=== PATIENT | female | born 1955 | race Caucasian/White ===

== ENCOUNTER 2017-09-13 20:13 | Emergency (ER) | payer BC | END 2017-09-13 20:56 | disposition home or self-care (01) | LOC: ERS 20:13 | DX: S91.032D Puncture wound without foreign body, left ankle, subsequent encounter (principal); K21.9 Gastro-esophageal reflux disease without esophagitis; I10 Essential (primary) hypertension; Z79.899 Other long term (current) drug therapy; W55.01XD Bitten by cat, subsequent encounter | CPT/HCPCS: 99283 ==

== ENCOUNTER 2017-09-14 14:37 | Inpatient (IN) | payer BC ==
[2017-09-14 16:59] LABS: #Eosinphils 0.1 thou/uL (0.0-0.7); #Lymphocytes 2.3 thou/uL (1.20-3.40); #Monocytes 0.8 thou/uL (0.11-0.59); #Neutrophils 7.5 thou/uL (1.40-6.50); %Basophils 0.2 % (0.0-1.0); %Eosinophils 1.2 % (0.0-10.0); %Lymphocytes 21.3 % (21.0-51.0); %Monocytes 7.4 % (0.0-10.0); Hemoglobin 11.9 g/dL (12.0-16.0); Mean Corpuscular HGB CONC 34.8 g/dL (32.0-36.0); Mean Corpuscular Hemoglobin 31.2 pg (27.0-31.0); Mean Corpuscular Volume 89.6 fL (78.0-98.0); Mean Platelet Volume 6.5 fL (7.4-10.4); Platelet Count 296 thou/uL (130-400); RBC Distribution Width 11.6 % (11.5-14.5); Red Blood Cell (RBC) Count 3.83 mill/uL (4.20-5.40); White Blood Cell (WBC) Count 10.6 thou/uL (4.8-10.8)
[2017-09-14 17:18] LABS: ALT (SGPT) 15 U/L (8-55); AST (SGOT) 16 U/L (5-34); Albumin 3.7 g/dL (3.4-4.8); Alkaline Phosphatase 61 U/L (40-150); Anion Gap 9 mmol/L (10-20); BUN (Urea Nitrogen) 11 mg/dL (9.8-20.1); Bilirubin, Total 0.3 mg/dL (0.2-1.2); Calc. Creatinine Clearance 0 mL/min (70-130); Calcium 8.8 mg/dL (7.8-10.44); Carbon Dioxide 29 mmol/L (23-31); Chloride 106 mmol/L (98-107); Estimated GFR-MDRD 80; Globulin 2.8 g/dL (2.4-3.5); Glucose 105 mg/dL (80-115); Potassium 3.4 mmol/L (3.5-5.1); Protein, Total 6.5 g/dL (6.0-8.3); Sodium 141 mmol/L (136-145)
[2017-09-14] MEDS ORDERED: Ampicillin/Sulbactam 3 GM in Sodium Chloride 0.9% 100 ML IVPB SCH (17:45)
--- NOTE | 2017-09-14 19:02 | PDOC.FPRHP ---
- History of Present Illness Chief Complaint: cat bite History of Present Illness: Patient is a 62 yo F presenting to the ED with a CC of a cat bite on her left ankle that occurred two days ago. The cat is the family cat and fully immunized. The patient went to [facility] ER on Wednesday and received [id number] BID. The patient kept having worsening pain and redness so went to the ED Wednesday night where shew as given Augmentin 850mg BID. She returns today due to continued worsening pain, swelling and redness of the left ankle. Patient reports pain is controlled right now, localized to the left ankle. She has taken tramadol for pain. She is unable to put weight on the left leg due to pain. Denies chest pain, SOB - Allergies/Adverse Reactions Allergies Allergy/AdvReac Type Severity Reaction Status Date / Time codeine Allergy Verified 02/28/13 16:36 Phenothiazines Allergy Verified 02/28/13 16:36 Tricyclic Compounds AdvReac Mild Anxiety Verified 02/28/13 16:36 - Home Medications Medication Instructions Recorded Confirmed Type Acetaminophen [Acetaminophen Extra 1,000 mg PO Q4HR PRN 02/28/13 02/28/13 History Strength] Calcium Carbonate [Tums Smoothies 2 tablet PO Q2HR PRN 02/28/13 02/28/13 History Extra Strength] Estradiol [Estrace] 25 mg PO DAILY 02/28/13 02/28/13 History Fluticasone Propionate 2 spray EA NARE DAILY 02/28/13 02/28/13 History [Fluticasone Propionate Nasal [place]] Hydrochlorothiazide 12.5 mg PO DAILY 02/28/13 02/28/13 History Ibuprofen 600 mg PO Q6HR PRN 02/28/13 02/28/13 History Montelukast Sodium [Singulair] 10 mg PO HS 02/28/13 02/28/13 History - History PMHx: unspecified arrythmia, chronic bronchitis, GERD, HTN, JERILYN PSHx: cholecystectomy, hysterectomy, tonsillectomy, melanoma removed 10/2016, orthopedic surgery bilateral feet X3 for neuromas > 20 yrs ago FHx: mother - [place], father - [place], DM Social: Denies alcohol, smoking or drug use - Review of Systems General: reports: fever/chills (subjective fevers off and on since the bite on Tuesday 09/12). denies: weight/appetite/sleep changes, night sweats, fatigue Eyes: denies: eye pain, vision changes ENT: reports: nasal congestion (allergies). denies: rhinorrhea Respiratory: denies: cough, shortness of breath Cardiovascular: denies: chest pain, palpitation Gastrointestinal: denies: nausea, vomiting, diarrhea, constipation Skin: reports: rashes (left ankle), lesions (redness and pain to left ankle from bite) Musculoskeletal: reports: pain (to left ankle), tenderness, swelling. denies: stiffness, arthritis/arthralgias Neurological: denies: numbness, weakness Psychological: denies: anxiety, depression - Vital signs BP: [151/67] HR: [79] RR: [16] Tmax: [98.3] Pox: [95]% on [RA] Wt: [91kg] - Physical Exam Constitutional: NAD, awake, alert and oriented, well developed HEENT: normocephalic and atraumatic, grossly normal vision, MMM Chest: no-tender to palpation, no lesions Heart: RRR, normal S1/S2, no murmurs/rubs/gallops, pulses present Lungs: CTAB, no respiratory distress, no rales/rhonchi, no wheezing Abdomen: soft, non-tender, bowel sounds present Musculoskeletal: ROM grossly normal -Musculoskeletal: strong pedal pulses bilaterally Neurological: no focal deficit, normal sensation, DTRs 2+ -Neurological: Normal sensation in bilateral extremities; strength decreased in left leg due to pain with movement Skin: capillary refill <2 seconds, other -Skin: 15X16 cm area of erythema to distal left ankle; no purulence or drainage; warm to touch; tender to palpation Psychiatric: normal mood and affect FMR H&P: Results - Labs Result Diagrams: 09/14/17 16:47 09/14/17 16:47 Lab results: WBC 10.6 thou/uL (4.8-10.8) 09/14/17 16:47 Hgb 11.9 g/dL (12.0-16.0) L 09/14/17 16:47 Hct 34.3 % (36.0-47.0) L 09/14/17 16:47 MCV 89.6 fL (78.0-98.0) 09/14/17 16:47 Plt Count 296 thou/uL (130-400) 09/14/17 16:47 Neutrophils % 70.0 % (42.0-75.0) 09/14/17 16:47 ESR Westergren 7 mm/hr (Less than 30) 09/14/17 16:47 Sodium 141 mmol/L (136-145) 09/14/17 16:47 Potassium 3.4 mmol/L (3.5-5.1) L 09/14/17 16:47 Chloride 106 mmol/L (98-107) 09/14/17 16:47 Carbon Dioxide 29 mmol/L (23-31) 09/14/17 16:47 BUN 11 mg/dL (9.8-20.1) 09/14/17 16:47 Creatinine 0.74 mg/dL (0.6-1.1) 09/14/17 16:47 Glucose 105 mg/dL (80-115) 09/14/17 16:47 Lactic Acid 0.9 mmol/L (0.5-2.2) 09/14/17 16:47 Calcium 8.8 mg/dL (7.8-10.44) 09/14/17 16:47 Total Bilirubin 0.3 mg/dL (0.2-1.2) 09/14/17 16:47 AST 16 U/L (5-34) 09/14/17 16:47 ALT 15 U/L (8-55) 09/14/17 16:47 Alkaline Phosphatase 61 U/L (40-150) 09/14/17 16:47 C-Reactive Protein 2.84 mg/dL (= or < 0.5) H 09/14/17 16:47 Serum Total Protein 6.5 g/dL (6.0-8.3) 09/14/17 16:47 Albumin 3.7 g/dL (3.4-4.8) 09/14/17 16:47 FMR H&P: A/P - Problem List (1) Cat bite of ankle Current Visit: Yes Status: Acute Code(s): S91.059A - OPEN BITE, UNSPECIFIED ANKLE, INITIAL ENCOUNTER; W55.01XA - BITTEN BY CAT, INITIAL ENCOUNTER Assessment and Plan: - begin IV abx of ampicillin/sulbactam 100 mls @ 200mls/hr - IV clinda to cover for staph infxn - monitor vitals signs - start therapeutic lovenox (2) Hypokalemia Current Visit: Yes Status: Acute Code(s): E87.6 - HYPOKALEMIA Assessment and Plan: - replace K 40mEq - recheck level tomorrow (3) Chronic hypertension not affecting current episode of care Current Visit: Yes Status: Acute Code(s): I10 - ESSENTIAL (PRIMARY) HYPERTENSION Assessment and Plan: - continue home meds of HCTZ and valsartan - monitor BPs (4) JERILYN (obstructive sleep apnea) Current Visit: Yes Status: Acute Code(s): G47.33 - OBSTRUCTIVE SLEEP APNEA ( ADULT) (PEDIATRIC) Assessment and Plan: - patient states she not use/desire CPAP at home - Plan Disposition/LOS: disposition: inpatient status, placed on medical floor, requiring iv abx length of stay: likely > 2 days Code Status: FULL FMR H&P: Upper Level - Pertinent history 62 yo WF PMH HTN, JERILYN, and "irregular heart beat." Presents following house cat bite that occurred Wednesday evening. Went to urgent care on Wednesday and was started on keflex. Went to ER Wednesday night because pain and swelling worsening. Was started on Augmentin and tramadol. Pain worsened and she returned to ER. Admitted for failed outpatient therapy. Cat was UTD on vaccinations. - Pertinent findings Vitals: BP mildly elevated Gen: NAD ENT: MMM CV: RRR, no murmur Lung: CTA-B, normal effort. Extremities: Swelling and erythema overlying left medial malleolus. two puncture wounds with scab near center of lesion. Erythema extends superiorly of the andrae made by MIGUEL martin. No streaking noted along proximal leg. Labs unremarkable - Plan Date/Time: 09/14/171857 I, Andrae Ogden MD, have evaluated this patient and agree with findings/plan as outlined by academic intern resident. Pertinent changes/additions are listed here. 1. Cellulitis 2/2 Cat bite: House cat that is UTD so low concern for rabies. Continue Unasyn. Start clinda to cover possible Straph since failed outpatient augmentin therapy. Tramadol for pain management. Will monitor progression of swelling. 2. HTN: home meds 3. JERILYN: patient states she does not use CPAP. Will encourage outpatient sleep study 4. CODE: Full 5. PPx: Fall, Lovenox since on estrogen.
[2017-09-14] MEDS ORDERED: Acetaminophen 325 MG TAB PO PRN (20:17)
[2017-09-14] MEDS ORDERED: Ondansetron ODT 4 MG TAB PO PRN (20:17)
[2017-09-14] MEDS ORDERED: Bisacodyl 10 MG SUPP PR PRN (20:17)
[2017-09-14] MEDS ORDERED: Acetaminophen 650 MG Suppository PR PRN (20:17)
[2017-09-14] MEDS ORDERED: Bisacodyl 5 MG TAB PO PRN (20:17)
[2017-09-14] MEDS ORDERED: Ondansetron HCl/PF 4 MG/2 ML Vial IVP PRN (20:17)
[2017-09-14] MEDS ORDERED: traMADol HCl 50 MG TAB PO PRN (20:22)
[2017-09-14] MEDS ORDERED: Enoxaparin Sodium 40 MG/0.4 ML SYRINGE SC SCH (20:30)
[2017-09-14] MEDS ORDERED: Calcium Carbonate 500 MG ChewTAB PO PRN (21:00)
[2017-09-14] MEDS: Montelukast Sodium 10 mg Tablet PO SCH (21:34)
[2017-09-14 21:45] VITALS: BMI 34.3
[2017-09-14] MEDS: Clindamycin/D5W 300 MG/50 ML BAG IVPB SCH (23:09)
[2017-09-15] MEDS: Ampicillin/Sulbactam 3 GM in Sodium Chloride 0.9% 100 ML IVPB SCH ×3 (02:29→17:43)
--- NOTE | 2017-09-15 05:11 | PDOC.FM ---
- Subjective Subjective: Did well overnight. Erythema margins around L ankle wound has decreased dramatically. Last night was 1 cm superior to marked margins, this morning within the marked margins. Pt reports improvement but also severe tenderness to the marked area. - Objective Vital Signs & Weight: Vital Signs (12 hours) Temp Pulse Resp BP Pulse Ox 09/15/17 00:46 97.9 F 84 18 117/70 94 L 09/14/17 21:30 98.2 F 84 18 160/75 H 95 09/14/17 20:00 98.2 F 84 18 95 09/14/17 19:14 97.8 F 80 18 154/80 H 98 Weight Weight 90.718 kg Result Diagrams: 09/14/17 16:47 09/14/17 16:47 <Connie Brown - Last Filed: 09/15/17 08:34> - Objective Vital Signs & Weight: Vital Signs (12 hours) Temp Pulse Resp BP Pulse Ox 09/15/17 16:55 98.5 F 79 18 158/70 H 96 09/15/17 12:44 98.0 F 92 20 163/76 H 92 L Weight Weight 90.718 kg I&O: 09/14/17 09/15/17 09/16/17 06:59 06:59 06:59 Intake Total 500 660 Balance 500 660 Result Diagrams: 09/14/17 16:47 09/15/17 12:15 <Magda Tinajero - Last Filed: 09/15/17 21:23> Phys Exam - Physical Examination HEENT: PERRLA, moist MMs, sclera anicteric Neck: no nodes Respiratory: clear to auscultation bilateral Cardiovascular: RRR, no significant murmur Gastrointestinal: soft, non-tender Musculoskeletal: pulses present Psychiatric: normal affect Skin: cap refill <2 seconds Deviation from normal: Area of erythema within the marked margins. Improving. <Connie Brown - Last Filed: 09/15/17 08:34> Dx/Plan (1) Cat bite of ankle Code(s): S91.059A - OPEN BITE, UNSPECIFIED ANKLE, INITIAL ENCOUNTER; W55.01XA - BITTEN BY CAT, INITIAL ENCOUNTER Status: Acute (2) Chronic hypertension not affecting current episode of care Code(s): I10 - ESSENTIAL (PRIMARY) HYPERTENSION Status: Chronic (3) Hypokalemia Code(s): E87.6 - HYPOKALEMIA Status: Acute - Plan Plan: - Plan 1. Cellulitis 2/2 Cat bite: House cat that is UTD so low concern for rabies. Tramadol for pain management. Will monitor progression of swelling. -Unasyn, clinda to cover staph since failed outpt augmentin therapy. Margin Erythema decreased since yesterday, improving. -blood cx pending -LA 1.9, stable 2. HTN: home meds 3. JERILYN: patient states she does not use CPAP. Will encourage outpatient sleep study 4. Hypokalemia -replaced with 40 mEq 0800 09/15 -recheck BMP @ 1200 on 09/15. Will add a mag level if no improvement. CODE: Full PPx: Fall, Lovenox since on estrogen. <Connie Brown - Last Filed: 09/15/17 08:34> Attending Addendum - Attending Addendum Date/Time: 09/15/170 I personally evaluated the patient and discussed the management with Dr. Bello Brown I agree with the History, Examination, Assessment and Plan documented above with any addition or exceptions noted below- Patient states that pain and swelling have improved. Afebrile VSS. A/P: 1) Left LE cellulitis secondary to cat bite- erythema and swelling improved. Continue IV abx and most likely transition to po tomorrow. <Magda Tinajero - Last Filed: 09/15/17 21:23>
[2017-09-15] MEDS: Clindamycin/D5W 300 MG/50 ML BAG IVPB SCH ×3 (06:06→19:25)
[2017-09-15] MEDS: Loratadine 10 MG TAB PO SCH (08:26)
[2017-09-15] MEDS: Enoxaparin Sodium 40 MG/0.4 ML SYRINGE SC SCH (08:26)
[2017-09-15] MEDS: Potassium Chloride 20 MEQ TAB PO SCH (08:26)
[2017-09-15] MEDS: Fluticasone Propionate Nasal Spray 16 gm Bottle NASAL SCH (10:11)
[2017-09-15 13:08] LABS: Anion Gap 12 mmol/L (10-20); BUN (Urea Nitrogen) 9 mg/dL (9.8-20.1); Calc. Creatinine Clearance 132 mL/min (70-130); Calcium 8.9 mg/dL (7.8-10.44); Carbon Dioxide 25 mmol/L (23-31); Chloride 108 mmol/L (98-107); Estimated GFR-MDRD Greater than 90; Glucose 103 mg/dL (80-115); Potassium 3.9 mmol/L (3.5-5.1); Sodium 141 mmol/L (136-145)
[2017-09-15] MEDS ORDERED: Saccharomyces boulardii 250 MG CAP PO SCH (13:30)
[2017-09-15] MEDS: Montelukast Sodium 10 mg Tablet PO SCH (20:34)
[2017-09-15] MEDS ORDERED: Valsartan 80 MG TAB PO SCH (21:00)
[2017-09-15] MEDS ORDERED: Hydrochlorothiazide 25 MG TAB PO SCH (21:00)
[2017-09-16] MEDS: Clindamycin/D5W 300 MG/50 ML BAG IVPB SCH ×3 (01:02→12:51)
[2017-09-16] MEDS: Ampicillin/Sulbactam 3 GM in Sodium Chloride 0.9% 100 ML IVPB SCH ×2 (02:12→10:18)
--- NOTE | 2017-09-16 05:59 | PDOC.FM ---
- Subjective Subjective: Pt 63 yo F here for cellulitis of the left leg. She feels well and wishes to go home. Erythema has significantly improved since yesterday. She feels well. Does have swollen left arm from where antibiotics were given through bad IV. Stable overnight - Objective Vital Signs & Weight: Vital Signs (12 hours) Temp Pulse Resp BP Pulse Ox 09/15/17 20:00 98.1 F 85 18 158/79 H 96 Weight Weight 90.718 kg I&O: 09/14/17 09/15/17 09/16/17 06:59 06:59 06:59 Intake Total 500 660 Balance 500 660 Result Diagrams: 09/14/17 16:47 09/15/17 12:15 <Connie Brown - Last Filed: 09/16/17 08:25> - Objective Vital Signs & Weight: Weight Weight 90.718 kg I&O: 09/15/17 09/16/17 09/17/17 06:59 06:59 06:59 Intake Total 500 660 480 Balance 500 660 480 Result Diagrams: 09/14/17 16:47 09/15/17 12:15 <Magda Tinajero - Last Filed: 09/16/17 22:16> Phys Exam - Physical Examination Constitutional: NAD Respiratory: clear to auscultation bilateral Cardiovascular: RRR, no significant murmur Gastrointestinal: soft, non-tender Musculoskeletal: pulses present Neurological: moves all 4 limbs Psychiatric: normal affect, A&O x 3 Deviation from normal: diameter of erythematous margin decreased since yesterday. Still some edema -: around the wound. Less tender to palpation today. <Connie Brown - Last Filed: 09/16/17 08:25> Dx/Plan (1) Cat bite of ankle Code(s): S91.059A - OPEN BITE, UNSPECIFIED ANKLE, INITIAL ENCOUNTER; W55.01XA - BITTEN BY CAT, INITIAL ENCOUNTER Status: Acute (2) Chronic hypertension not affecting current episode of care Code(s): I10 - ESSENTIAL (PRIMARY) HYPERTENSION Status: Chronic (3) Hypokalemia Code(s): E87.6 - HYPOKALEMIA Status: Acute - Plan Plan: 1. Cellulitis 2/2 Cat bite: Patient reports last Tdap to be 2-3 years ago. House cat that is UTD so low concern for rabies. Tramadol for pain management. Will monitor progression of swelling. -Unasyn, clinda to cover staph since failed outpt augmentin therapy. Margin Erythema decreased since yesterday, improving. -blood cx pending, NGTD -Plan to switch to oral antibiotics today, possibly discharge today. 2. HTN: home meds 3. JERILYN: patient states she does not use CPAP. Will encourage outpatient sleep study 4. Hypokalemia -replaced with 40 mEq 0800 09/15. Potassium level improved. CODE: Full PPx: Fall, Lovenox since on estrogen. <Connie Brown - Last Filed: 09/16/17 08:25> Attending Addendum - Attending Addendum Date/Time: 09/16/172213 I personally evaluated the patient and discussed the management with Dr. Bello Brown I agree with the History, Examination, Assessment and Plan documented above with any addition or exceptions noted below- Patient states that pain is much better. Denies any other complaints. Afebrile VSS. A/P: Cellulitis secondary cat bite- much improved. Plan to d/c home today on po augmentin. <Magda Tinajero - Last Filed: 09/16/17 22:16>
[2017-09-16] MEDS: Potassium Chloride 20 MEQ TAB PO SCH (08:18)
[2017-09-16] MEDS: Loratadine 10 MG TAB PO SCH (08:19)
[2017-09-16] MEDS: Enoxaparin Sodium 40 MG/0.4 ML SYRINGE SC SCH (08:19)
[2017-09-16] MEDS: Fluticasone Propionate Nasal Spray 16 gm Bottle NASAL SCH (08:22)
[2017-09-16] MEDS ORDERED: Loratadine 10 MG TAB PO SCH (09:00)
[2017-09-16] MEDS ORDERED: Saccharomyces boulardii 250 MG CAP PO SCH (09:00)
[2017-09-16] MEDS ORDERED: Hydrochlorothiazide 25 MG TAB PO SCH (09:00)
[2017-09-16 09:06] VITALS: BP 141/78; TEMP 98.7
--- NOTE | 2017-09-17 00:52 | DIS-2 ---
DATE OF ADMISSION: 09/14/2017 DATE OF DISCHARGE: 09/16/2017 RESIDENT: Connie Brown MD ADMITTING ATTENDING: Garland Perera M.D. DISCHARGE ATTENDING: Magda Tinajero M.D. CONSULTATIONS: None. PROCEDURES: None. PRIMARY DIAGNOSIS: Cellulitis of the left ankle secondary to cat bite. SECONDARY DIAGNOSES: 1. Hypertension. 2. Likely obstructive sleep apnea. 3. Hypokalemia. MEDICATIONS: 1. Valsartan 80 mg p.o. at bedtime. 2. Montelukast sodium 10 mg p.o. at bedtime. 3. Ibuprofen 600 mg p.o. q.6 hours p.r.n. 4. Hydrochlorothiazide 12.5 mg p.o. daily. 5. Fluticasone 2 sprays each naris daily. 6. Fexofenadine Hcl 180 mg p.o. daily. 7. Estrace 2 mg p.o. daily. 8. Nexium 40 mg p.o. daily. 9. Calcium carbonate 2 tablets p.o. q.2 hours p.r.n. 10. Acetaminophen 1000 mg p.o. q.4 hours p.r.n. 11. Fluconazole 150 mg 1 p.r.n. 12. Augmentin 875/125 one each p.o. 3 times a day for 7 days. DISCONTINUED MEDICATIONS: Augmentin and Keflex. HISTORY OF PRESENT ILLNESS AND HOSPITAL COURSE: Patient is a 62-year-old female , who presented to the ED with a chief complaint of a cat bite on her left ankle , received two days prior. The cat was her pet, fully immunized. The patient is up-to-date on her Tdap, received 2-3 yrs ago. She went to [facility] ER on Wednesday and received Keflex 500 mg b.i.d. She had worsening pain and redness, so she went to the ED Wednesday night where she was given Augmentin 850 mg b.i.d. Then, she returned Wednesday evening due to continued worsening pain, swelling, and redness of the left ankle. She was started on Unasyn and clindamycin. She was also given tramadol for pain. She was given 3 days of IV antibiotics and her erythema and pain significantly decreased. She was discharged home on Augmentin 875 t.i.d. x7 days for a total of 10 days of antibiotics. She was also given fluconazole 1 pill as needed for yeast infection. She is encouraged to take probiotics. Her labs were all normal. Her blood culture showed no growth at 48 hours that was both from a venous blood from her right arm as well for the venous blood taken from her left arm. She left in stable condition. DISCHARGE INSTRUCTIONS: 1. Location: Home. 2. Diet: Normal regular diet. 3. Activity: As tolerated. 4. Follow up within 7-10 days with PCP. LEO
== END 2017-09-16 16:58 | disposition home or self-care (01) | DRG 603 ==
LOC: ERS 14:37 → T4-B 17:32
PROVIDERS: ADMIT Family Medicine; ATTEND Family Medicine
DX: L03.116 Cellulitis of left lower limb (principal); S91.052A Open bite, left ankle, initial encounter; W55.01XA Bitten by cat, initial encounter; Y93.9 Activity, unspecified; Y92.9 Unspecified place or not applicable; Y99.9 Unspecified external cause status; I10 Essential (primary) hypertension; G47.33 Obstructive sleep apnea (adult) (pediatric); E87.6 Hypokalemia; B37.9 Candidiasis, unspecified; J42 Unspecified chronic bronchitis; K21.9 Gastro-esophageal reflux disease without esophagitis; Z83.3 Family history of diabetes mellitus; Z82.49 Family history of ischemic heart disease and other diseases of the circulatory system
CPT/HCPCS: 36415; 80048; 80053; 83605; 85025; 85652; 86140; 87040; 93005; 93010; 96365; A4216; J0295; J1650; J3490; J7050

== ENCOUNTER 2017-10-19 14:50 | Emergency (ER) | payer BC ==
--- NOTE | 2017-10-19 17:25 | ULT ---
VENOUS DOPPLER ULTRASOUND OF THE RIGHT LOWER EXTREMITY: 10/19/17 HISTORY: Right leg pain and edema. TECHNIQUE: Aguilar scale ultrasound with color flow and spectral doppler imaging of the deep venous system of the r ight lower extremity is performed. FINDINGS: There is good flow, compression and augmentation noted in the common femoral, femoral, deep femoral, popliteal, posterior tibial and greater saphenous veins in the right lower extremity. IMPRESSION: No evidence of DVT in the right lower extremity. POS: [facility]
[2017-10-19 18:20] LABS: #Basophils 0.1 thou/uL (0.0-0.2); #Eosinphils 0.1 thou/uL (0.0-0.7); #Lymphocytes 2.8 thou/uL (1.20-3.40); #Monocytes 0.8 thou/uL (0.11-0.59); #Neutrophils 8.2 thou/uL (1.40-6.50); %Basophils 0.6 % (0.0-1.0); %Lymphocytes 23.2 % (21.0-51.0); %Monocytes 6.6 % (0.0-10.0); %Neutrophils 68.6 % (42.0-75.0); Hemoglobin 12.7 g/dL (12.0-16.0); Mean Corpuscular HGB CONC 33.6 g/dL (32.0-36.0); Mean Corpuscular Hemoglobin 30.4 pg (27.0-31.0); Mean Corpuscular Volume 90.5 fL (78.0-98.0); Mean Platelet Volume 6.6 fL (7.4-10.4); Platelet Count 309 thou/uL (130-400); RBC Distribution Width 11.7 % (11.5-14.5); Red Blood Cell (RBC) Count 4.18 mill/uL (4.20-5.40)
[2017-10-19 18:40] LABS: ALT (SGPT) 15 U/L (8-55); AST (SGOT) 15 U/L (5-34); Albumin 3.8 g/dL (3.4-4.8); Alkaline Phosphatase 67 U/L (40-150); Anion Gap 12 mmol/L (10-20); BUN (Urea Nitrogen) 7 mg/dL (9.8-20.1); Bilirubin, Total 0.3 mg/dL (0.2-1.2); CK (CPK) 95 U/L (29-168); Calc. Creatinine Clearance 0 mL/min (70-130); Carbon Dioxide 25 mmol/L (23-31); Chloride 104 mmol/L (98-107); Estimated GFR-MDRD Greater than 90; Glucose 90 mg/dL (80-115); Lipase 15 U/L (8-78); Potassium 3.6 mmol/L (3.5-5.1); Protein, Total 6.8 g/dL (6.0-8.3); Sodium 137 mmol/L (136-145)
[2017-10-19 18:43] LABS: Troponin I Less than 0.010 ng/mL (< 0.028)
--- NOTE | 2017-10-19 20:34 | RAD ---
CHEST ONE VIEW: 10/19/17 HISTORY: Dyspnea. COMPARISON: Chest radiograph 07/01/16. FINDINGS: The lungs are clear. No pneumothorax or effusion. The cardiac silhouette and mediastinal contours are within normal limits. IMPRESSION: No acute intrathoracic abnormality. POS: [facility]
--- NOTE | 2017-10-23 10:53 | EKG ---
Test Reason : Blood Pressure : / mmHG Vent. Rate : 078 BPM Atrial Rate : 078 BPM P-R Int : 158 ms QRS Dur : 084 ms QT Int : 394 ms P-R-T Axes : 048 031 065 degrees QTc Int : 449 ms Normal sinus rhythm Normal ECG Confirmed by SANDY LINARES, FLORA ([id number]), video tape editor SNOW GUNTER ([id number]) on 10/23/2017 10:52:54 AM Referred By: Confirmed By:FLORA DELGADO MD
== END 2017-10-19 19:14 | disposition home or self-care (01) ==
LOC: ERS 14:50
DX: M79.89 Other specified soft tissue disorders (principal); I10 Essential (primary) hypertension; J42 Unspecified chronic bronchitis; I49.9 Cardiac arrhythmia, unspecified; Z79.899 Other long term (current) drug therapy
CPT/HCPCS: 36415; 71045; 80053; 82550; 82553; 83690; 83880; 84484; 85025; 93005

== ENCOUNTER 2018-02-02 15:04 | Outpatient (CLI) | payer BC | END 2018-02-02 15:05 | disposition home or self-care (01) | LOC: BICMAMMO 15:04 | PROVIDERS: ATTEND Internal Medicine | DX: Z12.31 Encounter for screening mammogram for malignant neoplasm of breast (principal); R92.1 Mammographic calcification found on diagnostic imaging of breast | CPT/HCPCS: 77063; 77067 ==

== ENCOUNTER 2018-06-07 11:17 | Day surgery (SDC) | payer BC ==
[2018-06-06 11:23] VITALS: BMI 34.7
--- NOTE | 2018-06-07 12:50 | RAD ---
LEFT HIP TWO VIEWS: Indication: Left hip pain. Comparison: None. FINDINGS: There is mild degenerative arthrosis of the left hip. No acute fracture or subluxation is evident. IMPRESSION: No acute osseous abnormality. POS: [facility]
[2018-06-07] MEDS ORDERED: Ondansetron PF 4 MG/2 ML Vial ONE (12:56)
[2018-06-07] MEDS ORDERED: PROPOFOL 200 MG/20 ML VIAL ONE (12:56)
[2018-06-07] MEDS ORDERED: Lidocaine 1% PF 5 ML VIAL ONE (12:56)
--- NOTE | 2018-06-07 13:59 | RAD ---
CERVICAL SPINE 7 VIEWS: Date: 06/07/18 INDICATION: Neck pain. FINDINGS: There is advanced facet osteoarthrosis at C3-4, C4-5, and C5-6. There is slight anterior translation of C4 on C5 and C5 on C6 with neutral positioning. This reduces with extension and is accentuated wit h flexion. There is multilevel mild disc degenerative disease most pronounced at C5-6 and C6-7. Preve rtebral soft tissues are normal appearing. Very subtle anterior translation of C3 on C4 with flexion and C2 on C3 with flexion. Prevertebral soft tissues are normal appearing. Lung apices are clear. IMPRESSION: 1. Multilevel spondylosis of the cervical spine. 2. Mild anterior translation of C4 on C5 and C5 on C6, with neutral positioning that is reduced with extension and accentuated with flexion. There is also mild anterior translation of C2 on C3 and C3 o n C4 that is accentuated with flexion, but is reduced on the neutral and extension positioning films. POS: [facility]
--- NOTE | 2018-06-07 15:54 | MRI ---
CERVICAL SPINE MRI WITHOUT CONTRAST: 06/07/18 HISTORY: Cervical disc herniation. Multiple falls. Left sided neck and arm pain. COMPARISON: None. TECHNIQUE: Cervical spine MRI is performed without intravenous gadolinium administration. Multisequential, multi planar imaging is performed. FINDINGS: Appropriate T1 marrow signal intensity of the cervical vertebra. Cervical spine vertebral body height is maintained. There is no fracture. No significant STIR hyperintensity to suggest vertebral body ed mal or ligamentous injury. The visualized brain parenchyma, cervicomedullary junction, cervical cord and the upper thoracic cord have a normal size and signal intensity. C2-C3: No significant central canal stenosis or foraminal narrowing. C3-C4: Broad based disc osteophyte complex abuts the thecal sac and effaces the ventral thecal sac. T here is mild mass effect upon the cervical cord. At least mild central canal stenosis. Severe right a nd moderate left foraminal narrowing due to hypertrophic changes of the uncovertebral joint and facet on the right and hypertrophic changes on the left. C4-C5: No significant central canal stenosis. Right neural foramen is patent. Mild left foraminal antoinette rowing due to facet hypertrophy. C5-C6: Broad based disc osteophyte complex abuts the thecal sac. Mild central canal stenosis. Neural foramina are minimally narrowed due to uncovertebral hypertrophy. C6-C7: No significant central canal stenosis. At least mild bilateral foraminal narrowing. C7-T1: No significant central canal stenosis or foraminal narrowing. IMPRESSION: Degenerative changes cervical spine as above. POS: [facility]
== END 2018-06-07 15:30 | disposition home or self-care (01) ==
LOC: SDC/OP 11:17
PROVIDERS: ATTEND Anesthesiology Pain Medicine
DX: M50.21 Other cervical disc displacement, high cervical region (principal); M48.02 Spinal stenosis, cervical region; M47.812 Spondylosis without myelopathy or radiculopathy, cervical region; I10 Essential (primary) hypertension; M46.1 Sacroiliitis, not elsewhere classified; M16.12 Unilateral primary osteoarthritis, left hip; Z79.51 Long term (current) use of inhaled steroids; Z79.899 Other long term (current) drug therapy; Z88.5 Allergy status to narcotic agent; Z88.8 Allergy status to other drugs, medicaments and biological substances
CPT/HCPCS: 72052; 72141

== ENCOUNTER 2019-02-06 14:15 | Outpatient (CLI) | payer BC ==
--- NOTE | 2019-02-06 15:28 | MMO ---
Bilateral MAMMO Bilat Screen DDI+ASIF. CLINICAL HISTORY: Patient is 64 years old and is seen for screening. The patient has the following family history of breast cancer: maternal aunt, malignant (generic). The patient has a history of melanoma at age 62. VIEWS: The views performed were: bilateral craniocaudal with tomosynthesis and bilateral mediolateral oblique with tomosynthesis. FILMS COMPARED: The present examination has been compared to prior imaging studies performed at [facility] on 05/02/2013, 06/21/2014, 07/19/2015 and 02/02/2018. This study has been interpreted with the assistance of computer-aided detection. MAMMOGRAM FINDINGS: The breasts are heterogeneously dense, which could obscure a lesion on mammography. Finding 1: Scattered nodules are seen, some slightly larger and some slightly smaller, compatible with fluctuating cysts. Finding 2: There are stable benign appearing calcifications seen in both breasts. There are no suspicious masses, suspicious calcifications, or new areas of architectural distortion. IMPRESSION: THERE IS NO MAMMOGRAPHIC EVIDENCE OF MALIGNANCY. A ROUTINE FOLLOW-UP MAMMOGRAM IN 1 YEAR IS RECOMMENDED. THE RESULTS OF THIS EXAM WERE SENT TO THE PATIENT. ACR BI-RADS Category 2 - Benign finding MAMMOGRAPHY NOTE: 1. A negative mammogram report should not delay a biopsy if a dominant of clinically suspicious mass is present. 2. Approximately 10% to 15% of breast cancers are not detected by mammography. 3. Adenosis and dense breasts may obscure an underlying neoplasm. Reported by: DIEUDONNE PEDERSON MD Electonically Signed: [id number]
== END 2019-02-06 14:16 | disposition home or self-care (01) ==
LOC: BICMAMMO 14:15
DX: Z12.31 Encounter for screening mammogram for malignant neoplasm of breast (principal); Z80.3 Family history of malignant neoplasm of breast; Z85.820 Personal history of malignant melanoma of skin
CPT/HCPCS: 77063; 77067

== ENCOUNTER 2021-02-24 12:34 | Outpatient (CLI) | payer BC | END 2021-02-24 12:35 | disposition home or self-care (01) | LOC: BICMAMMO 12:34 | PROVIDERS: ATTEND Internal Medicine | DX: Z12.31 Encounter for screening mammogram for malignant neoplasm of breast (principal); Z80.3 Family history of malignant neoplasm of breast; Z85.820 Personal history of malignant melanoma of skin | CPT/HCPCS: 77063; 77067 ==

== ENCOUNTER 2022-02-02 16:06 | Outpatient (CLI) | payer BC | END 2022-02-02 16:07 | disposition home or self-care (01) | LOC: BICCT 16:06 | PROVIDERS: ATTEND Urology | DX: R31.0 Gross hematuria (principal); N20.0 Calculus of kidney | CPT/HCPCS: 74176 ==

== ENCOUNTER 2023-04-01 12:48 | Outpatient (CLI) | payer BC, MEDICARE | END 2023-04-01 12:49 | disposition home or self-care (01) | LOC: BICMAMMO 12:48 | PROVIDERS: ATTEND Internal Medicine | DX: Z12.31 Encounter for screening mammogram for malignant neoplasm of breast (principal); Z13.820 Encounter for screening for osteoporosis; M85.89 Other specified disorders of bone density and structure, multiple sites; Z80.3 Family history of malignant neoplasm of breast; Z85.820 Personal history of malignant melanoma of skin | CPT/HCPCS: 77063; 77067; 77080 ==

== ENCOUNTER 2023-08-28 09:16 | Outpatient (CLI) | payer BC, MEDICARE | END 2023-08-28 09:17 | disposition home or self-care (01) | LOC: MRI 09:16 → SCSMRI 09:17 | PROVIDERS: ATTEND Physician Assistant Medical | DX: K52.9 Noninfective gastroenteritis and colitis, unspecified (principal); R93.2 Abnormal findings on diagnostic imaging of liver and biliary tract | CPT/HCPCS: 74183; 82565 ==

== ENCOUNTER 2024-01-25 08:15 | Outpatient (CLI) | payer BC, MEDICARE | END 2024-01-25 08:16 | disposition home or self-care (01) | LOC: BICCT 08:15 | PROVIDERS: ATTEND Physician Assistant Medical | DX: K52.9 Noninfective gastroenteritis and colitis, unspecified (principal); R10.31 Right lower quadrant pain; K76.89 Other specified diseases of liver; K57.30 Diverticulosis of large intestine without perforation or abscess without bleeding | CPT/HCPCS: 36415; 74177; 82565 ==

== ENCOUNTER 2024-02-16 07:23 | Day surgery (SDC) | payer BC, MEDICARE ==
[2024-02-15 10:23] VITALS: BMI 36.8
[2024-02-16] MEDS ORDERED: PROPOFOL 40 ML ONE (07:27)
[2024-02-16] MEDS ORDERED: Lidocaine 2% PF 100 mg/5 ml Syringe ONE (07:27)
[2024-02-16] MEDS ORDERED: PHENYLEPHRINE-NS 100 MCG/ML 10 ML SYRINGE ONE (09:09)
[2024-02-16] MEDS ORDERED: PROPOFOL 20 ML ONE (09:16)
== END 2024-02-16 10:30 | disposition home or self-care (01) ==
LOC: SDC 07:23
PROVIDERS: ATTEND Internal Medicine Gastroenterology
PROC: 0DBN8ZX Excision of Sigmoid Colon, Via Natural or Artificial Opening Endoscopic, Diagnostic (ICD-10-PCS; principal; 2024-02-16)
PROC: 0DBK8ZX Excision of Ascending Colon, Via Natural or Artificial Opening Endoscopic, Diagnostic (ICD-10-PCS; principal; 2024-02-16)
PROC: 0DBL8ZX Excision of Transverse Colon, Via Natural or Artificial Opening Endoscopic, Diagnostic (ICD-10-PCS; principal; 2024-02-16)
PROC: 0DBM8ZX Excision of Descending Colon, Via Natural or Artificial Opening Endoscopic, Diagnostic (ICD-10-PCS; principal; 2024-02-16)
DX: K57.30 Diverticulosis of large intestine without perforation or abscess without bleeding (principal); K21.9 Gastro-esophageal reflux disease without esophagitis; I10 Essential (primary) hypertension; E11.9 Type 2 diabetes mellitus without complications; G43.909 Migraine, unspecified, not intractable, without status migrainosus; Z78.0 Asymptomatic menopausal state; Z90.49 Acquired absence of other specified parts of digestive tract; Z90.710 Acquired absence of both cervix and uterus; Z88.5 Allergy status to narcotic agent; Z88.8 Allergy status to other drugs, medicaments and biological substances; Z91.048 Other nonmedicinal substance allergy status; Z79.51 Long term (current) use of inhaled steroids; Z79.1 Long term (current) use of non-steroidal anti-inflammatories (NSAID); Z79.2 Long term (current) use of antibiotics; Z79.899 Other long term (current) drug therapy
CPT/HCPCS: 88305; J2003; J2704